=== PATIENT | female | born 1975 | race Caucasian/White ===

== ENCOUNTER → 2024-05-04 17:34 | Outpatient (REF) | payer OTHER, SELFPAY | LOC: WDC 17:34 | PROVIDERS: ATTENDING PHYSICIAN Obstetrics & Gynecology Gynecology; FAMILY PHYSICIAN Family Medicine | DX: Z12.31 Encounter for screening mammogram for malignant neoplasm of breast (principal) | CPT/HCPCS: 77063; 77067 ==

== ENCOUNTER 2024-07-08 15:52 | Emergency (ER) | payer OTHER, SELFPAY ==
[2024-07-08 16:09] VITALS: BP 125/76
--- NOTE | 2024-07-08 19:50 | ED.GENMED ---
Addendum entered and electronically signed by Milad Saravia Jr., PA-C 07/20/24 19:00:
Patient with 1 cm superficial laceration to her left sided posterior scalp. This was cleaned thoroughly and closed with a small amount of Dermabond as there was not significant amount of hair overlying the area. Otherwise very clean in appearance
no foreign body seen no signs of neurovascular compromise. No ongoing bleeding.
Original Note:
History of Present Illness
General
Chief Complaint: Head Injury
Source: patient and spouse
Exam Limitations: none
Time Seen by Provider: 07/08/24 18:32
Nursing documentation reviewed up to this point in time: agreed with
History of Present Illness
History of Present Illness:
48-year-old female presenting to the emergency department today after slipping on ice while skating hitting the left posterior portion of her head. She sustained a small laceration bleeding initially but since has stopped. No loss of consciousness
no numbness weakness nausea vomiting neck pain not on blood thinners.
Review of Systems
Review of Systems
Allergies reviewed?: Yes
All Other Systems: ROS reviewed and negative except as documented in HPI and ROS
Phy Exam
Physical Exam
Physical Exam:
GENERAL: Alert , in no apparent distress
EYE: pupils equal and reactive
NECK: Supple, no significant adenopathy.
ENT: Very superficial laceration to the left occipital scalp no active bleeding roughly 1 cm in length o/p clr, mmm.
CARDIAC: Regular rate and rhythm .
LUNGS: Clear breath sounds bilaterally, no acute respiratory distress, no wheezes/rales/rhonchi
ABDOMEN: Soft, without focal tenderness, no r/g, no cvat
NEUROLOGICAL: Alert and oriented, no focal neuro deficits
SKIN: Warm and dry, skin intact.
MUSCULOSKELETAL: No edema, well perfused.
PSYCH: Normal and appropriate interaction.
Course
Vital Signs
Initial and Last Documented VS:
Initial Vital Signs
Temp Pulse Resp BP Pulse Ox
98.4 F 68 16 125/76 100
07/08/24 16:09 07/08/24 16:09 07/08/24 16:09 07/08/24 16:09 07/08/24 16:09
Last Documented Vital Signs
Temp Pulse Resp BP Pulse Ox
98.4 F 68 16 125/76 100
07/08/24 16:09 07/08/24 16:09 07/08/24 16:09 07/08/24 16:09 07/08/24 16:09
MDM/Problems Addressed
MDM/Problems Addressed:
48-year-old female presenting to the emergency department today with concerns of a slip and fall while skating prior to arrival. Patient here well-appearing in no acute distress there is been at least 5 hours without any progressive symptoms. No
vomiting no severe headache no Pleitez sign or raccoon eyes. No signs of CSF leak. No neck pain. Patient very low risk according to [facility] head CT rules as well as [facility] rules. Have a CT scan at this point otherwise stable for outpatient
management return precautions given. Patient is up-to-date with her tetanus shot
*Critical Care Note
Total Time (30-74mins, 75-104mins- exclusive of procedures): Not Applicable
ED Attending Note
-
Portions of this chart may have been created with voice recognition software.� Occasional wrong word or��sound alike� substitutions may have occurred due to the inherent limitations of voice recognition software.
Discharge Plan
Departure
Patient Disposition: Home (Routine Discharge)
Date of Disposition: 07/08/24
Time of Disposition: 19:50
Patient with high blood pressure during this ER visit?: No
Condition: Good
Covid-19: Not Applicable
Discharge Problem:
Mild closed head injury, Laceration of scalp
Instructions: Laceration Repair With Glue (DC), Minor Head Injury (DC)
Referrals:
Fernie Bates MD [Family Provider] -
Activity Restrictions/Additional Instructions:
You do department after head. You had a reassuring assessment evidently getting very low likelihood of life-threatening injury. Please rest over the next day or 2. If there is any significant progression of symptoms immediately return for any
worsening, new or concerning symptoms.
Interventions
Interventions:
*Risk Screen - Suicide Last Done: 07/08/24 16:09
*General Assessment Last Done: 07/08/24 16:09
*ED COVID-19 Vaccine History Last Done: 07/08/24 16:09
*Nursing Disposition Last Done: 07/08/24 19:58
ED- Neurological Assessment Last Done: 07/08/24 18:34
ED-Skin Assessment Last Done: 07/08/24 18:34
Discharge Date and Time
Discharge Date/Time: 07/08/24 19:59
Print Language: [id number]
== END 2024-07-08 19:59 | disposition home or self-care (01) ==
LOC: EMR 15:52
PROVIDERS: EMERGENCY PHYSICIAN Emergency Medicine; FAMILY PHYSICIAN Family Medicine
DX: S01.01XA Laceration without foreign body of scalp, initial encounter (principal); S09.90XA Unspecified injury of head, initial encounter; W00.0XXA Fall on same level due to ice and snow, initial encounter; Y93.21 Activity, ice skating; E03.9 Hypothyroidism, unspecified
CPT/HCPCS: 99282; 12001

== ENCOUNTER → 2025-06-06 19:31 | Outpatient (REF) | payer OTHER, SELFPAY | LOC: WDC 19:31 | PROVIDERS: ATTENDING PHYSICIAN Obstetrics & Gynecology Gynecology; FAMILY PHYSICIAN Family Medicine | DX: Z12.31 Encounter for screening mammogram for malignant neoplasm of breast (principal) | CPT/HCPCS: 77063; 77067 ==